=== PATIENT | male | born 1945 | race Caucasian/White ===

== ENCOUNTER 2020-01-03 08:30 | Day surgery (SDC) | payer MEDICARE, MEDICAID ==
[~2020-01-03 08:30] MED LIST: PROPOFOL 200 MG/20 ML VIAL IV ONE; SODIUM CHLORIDE 0.9% 50 ML VIAL ONE
[2020-01-03] MEDS ORDERED: LACTATED RINGERS 0 ML ONE (09:51)
[2020-01-03] MEDS ORDERED: SODIUM CHLORIDE 0.9% 250ML 250 ML ONE (09:53)
--- NOTE | 2020-01-03 09:56 | RAD ---
EXAM DESCRIPTION: Chest,1 View CLINICAL HISTORY: 74 years Male, pre op COMPARISON: None. TECHNIQUE: Single view radiograph of the chest. IMPRESSION: Enlarged cardiac silhouette. Partially calcified aorta. Dual lumen left IJ central venous catheter is in place with its tip directed inferiorly terminating within the superior vena cava. Prior sternotomy. Bilateral perihilar congestion. Coarse interstitial lung markings may reflect underlying pulmonary edema versus chronic interstitial changes. No lobar consolidation otherwise present. No pleural effusion or pneumothorax. Thoracic spondylosis. Electronically signed by: Ryan Moralez MD 01/03/2020 9:54 AM CDT
[2020-01-03] MEDS ORDERED: BUPIVACAINE 0.25% W/EPI 50 ML VIAL INJ ONE (10:13)
[2020-01-03] MEDS ORDERED: LIDOCAINE 1% 50 ML VIAL INJ ONE ×3 (10:19→10:32)
[2020-01-03] MEDS ORDERED: MIDAZOLAM INJ 2 MG/2 ML VIAL ONE (10:30)
[2020-01-03] MEDS ORDERED: fentaNYL CITRATE INJ 50 MCG/ML 2 ML AMP ONE (10:30)
--- NOTE | 2020-01-03 11:32 | OP ---
DATE OF PROCEDURE: 01/03/20 PREOPERATIVE DIAGNOSIS: 1. Nonfunctioning dialysis tunneled catheter. POSTOPERATIVE DIAGNOSIS: 1. Nonfunctioning dialysis tunneled catheter. PROCEDURE: 1. Removal of nonfunctioning tunneled dialysis catheter from the left IJ. SURGEON: Dominik Mayes MD. BANK COMPLIANCE OFFICER: None. ANESTHESIA: Local infiltration of 1% lidocaine and IV sedation by Anesthesia. INDICATION: The patient is a 74-year-old male on dialysis who has a percutaneous tunneled dialysis catheter that is no longer being used. He has dementia and for that reason, he is brought to the [facility] for removal of this catheter under the recommendation by his warp trucker, Dr. Cole. FINDINGS: The catheter was identified without difficulty. PROCEDURE: After the patient was padding in the usual sterile manner, a surgical time-out was taken. The cuff of the catheter was identified by palpation and local infiltration of anesthesia was obtained over the cuff and somewhat more proximally. An incision was made over the catheter and dissection down to the catheter was performed using blunt dissection. The catheter was dissected free proximal to the cuff using blunt dissection and some sharp dissection with scissors. When this was done, eventually the catheter was dissected proximally and then blunt dissection and then the catheter was removed without difficulty. Pressure was held over the left IJ. The cuff was then dissected free with sharp dissection and the catheter was removed. Hemostasis was obtained with pressure. The incision was then closed with 4 vertical mattress sutures of 4-0 Nylon. Sterile pressure dressing was applied. The patient tolerated the procedure well. Estimated blood loss was less than 25 mL. All sponge, needle and instrument counts were correct. #[id number] [facility]
[2020-01-03 15:44] VITALS: BP 126/65; TEMP 97.5; O2SAT 98
== END 2020-01-03 12:10 ==
LOC: AMB 08:30
PROVIDERS: ATTEND Surgery
DX: Z49.01 Encounter for fitting and adjustment of extracorporeal dialysis catheter (principal); F03.90 Unspecified dementia, unspecified severity, without behavioral disturbance, psychotic disturbance, mood disturbance, and anxiety
CPT/HCPCS: 36415; 36589; 71045; 80048; 85025; 93005; A4216; J2250; J3010; J3490; J7050

== ENCOUNTER 2020-01-04 13:16 | Emergency (ER) | payer MEDICARE, MEDICAID ==
[2020-01-04 13:38] VITALS: TEMP 97.9
--- NOTE | 2020-01-04 13:40 | RAD ---
EXAM DESCRIPTION: Chest,1 View CLINICAL HISTORY: fall COMPARISON: January 03, 2020 IMPRESSION: Single AP portable upright view of the chest shows enlargement of the cardiac silhouette without pulmonary vascular congestion. Postsurgical changes from CABG are seen. Interval removal of left IJ tunneled hemodialysis catheter. Lungs are normally aerated with chronic appearing interstitial changes similar to previous. No acute infiltrate or consolidation. No pleural effusion or pneumothorax. Osseous structures are diffusely osteopenic. Electronically signed by: Collin Neal MD 01/04/2020 1:39 PM CDT
[2020-01-04] MEDS ORDERED: TETANUS,DIPHTHERIA,PERTUSSIS 1 EA SYG IM ONE (13:41)
--- NOTE | 2020-01-04 13:49 | ED.PDOC ---
History of Present Illness - General Chief Complaint: Trauma Stated Complaint: FALL Time Seen by Provider: 01/04/20 13:25 Source: RN notes reviewed, Vital Signs reviewed, EMS notes reviewed Exam Limitations: no limitations - History of Present Illness Initial Comments: 74 y/o dialysis patient fell while transferring. He was found prone on the floor. no LOC. Upon arrival to ER he indicates that he has pain to his L side. He also has multiple skin tears. hands, head and arm. Denies any other sx at this time. Allergies/Adverse Reactions: Allergies Cinacalcet Allergy (Verified 01/04/20 13:47) Lisinopril Allergy (Verified 01/04/20 13:47) Penicillins Allergy (Verified 01/03/20 08:59) Ramipril Allergy (Verified 01/04/20 13:47) Sulfa Antibiotics Allergy (Verified 01/03/20 08:59) Review of Systems - Review of Systems Constitutional: States: no symptoms reported EENTM: States: see HPI Respiratory: States: no symptoms reported Cardiology: States: no symptoms reported Gastrointestinal/Abdominal: States: no symptoms reported Genitourinary: States: other - ESRD on dialysis Skin: States: other - skin tears to both hands and R arm Neurological: States: no symptoms reported Hematologic/Lymphatic: States: anemia Past Medical History (General) - Patient Medical History Hx Congestive Heart Failure: No Hx Diabetes: Yes - 123 Hx MRSA: No Family Medical History - Family History Mother Family History: Unknown Physical Exam - Physical Exam General Appearance: Alert, Comfortable, No apparent distress Eye Exam: left normal Ears, Nose, Throat: hearing grossly normal, normal ENT inspection, normal pharynx, other Neck: non-tender, full range of motion, supple, normal inspection Respiratory: chest non-tender, lungs clear, normal breath sounds, no respiratory distress Cardiovascular/Chest: regular rate, rhythm, no edema, no JVD, no murmur Gastrointestinal/Abdominal: normal bowel sounds, non tender, soft, no organomegaly, no pulsatile mass Back Exam: normal inspection, no vertebral tenderness Extremity: normal range of motion, no pedal edema, other Skin Exam: other - skin tear to R hand x2 and R elbow. skin tear to L middle finger Departure - Departure Clinical Impression: Contusion of abdominal wall Qualifiers: Encounter type: initial encounter Qualified Code(s): S30.1XXA - Contusion of abdominal wall, initial encounter Contusion of rib Qualifiers: Encounter type: initial encounter Laterality: left Qualified Code(s): S20.212A - Contusion of left front wall of thorax, initial encounter Disposition: Discharge to Home or Self Care Condition: Good Departure Forms: ED Discharge - Pt. Copy, Patient Portal Self Enrollment Instructions: DI for Trauma Referrals: Dejan Scott MD [Primary Care Provider] - 1-2 Weeks
[2020-01-04] MEDS ORDERED: NEOMYCIN-BACITRACIN-POLYMYXIN 0.9 GM UD TOP SCH (14:00)
[2020-01-04 15:40] VITALS: BP 161/86; O2SAT 97
== END 2020-01-04 15:10 | disposition home or self-care (01) ==
LOC: ER 13:16
DX: S30.1XXA Contusion of abdominal wall, initial encounter (principal); S20.212A Contusion of left front wall of thorax, initial encounter; S61.411A Laceration without foreign body of right hand, initial encounter; S61.213A Laceration without foreign body of left middle finger without damage to nail, initial encounter; S51.011A Laceration without foreign body of right elbow, initial encounter; W18.30XA Fall on same level, unspecified, initial encounter; Y92.9 Unspecified place or not applicable

== ENCOUNTER 2020-02-12 12:51 | Emergency (ER) | payer MEDICARE, MEDICAID ==
[2020-02-12 13:16] VITALS: TEMP 97
--- NOTE | 2020-02-12 13:54 | CT ---
TECHNIQUE: Spiral CT images were obtained of the cervical spine. Sagittal and coronal reconstructions were also performed. This exam was performed according to our departmental dose-optimization program, which includes automated exposure control, adjustment of the mA and/or kV according to patient size and/or use of iterative reconstruction technique. CLINICAL HISTORY PROVIDED: FELL; ACUTE AMS; PAIN IN HEAD, C-SPINE, R SHOULDER COMPARISON: None available. FINDINGS: Alignment: No acute subluxation. Fracture: No acute fracture. Degenerative Changes: Multilevel degenerative changes are present. Multilevel disc space narrowing with endplate degenerative change, marginal osteophytes and facet/uncinate process hypertrophy most pronounced at C5/C6. Prevertebral / Paraspinal Soft Tissues: Diffuse vascular calcifications. Pleural calcifications noted in the tentorium. Debris in the upper esophagus. IMPRESSION: Multilevel cervical spondylosis. No acute fracture or subluxation. Electronically signed by: Norman Ta MD 02/12/2020 1:52 PM CDT
--- NOTE | 2020-02-12 13:56 | CT ---
EXAM DESCRIPTION: CT Head without contrast CLINICAL HISTORY: FELL; ACUTE AMS; PAIN IN HEAD, C-SPINE, R SHOULDER COMPARISON: None available TECHNIQUE: Noncontrast head CT was performed with routine protocol. FINDINGS: Soft tissue hematoma of the left frontal region is consistent with history of acute trauma. Bone window images are negative for underlying calvarial fracture. No fracture of the frontal sinus. Normal gonzalez-white matter differentiation. Ventricles and sulci are prominent consistent with age-related cerebral volume loss. Low density areas in the white matter consistent with chronic microvascular ischemic disease No high density hemorrhage, focal edema or shift of the midline. No sulcal effacement. Dense calcification of the tentorium cerebelli. Normal orbital contents. Basilar cisterns appear clear. Intact calvarium with no fracture or lytic lesion. Normal aeration of tympanic cavities and mastoid air cells. Very dense opacification of the right maxillary sinus consistent with chronic inspissated mucus or fungal infection. Skull base appears intact. Symmetrical internal auditory canals. IMPRESSION: No acute intracranial pathologic process. Chronic right maxillary sinusitis. This exam was performed according to our departmental dose-optimization program, which includes automated exposure control, adjustment of the mA and/or kV according to patient size and/or use of iterative reconstruction technique. Total DLP equals 1161.32 mGycm. Electronically signed by: Jace De Oliveira MD 02/12/2020 1:54 PM CDT
--- NOTE | 2020-02-12 13:58 | RAD ---
EXAM DESCRIPTION: Chest,1 View CLINICAL HISTORY: 74 years Male, ACUTE ALTERED MENTAL STATUS COMPARISON: 01/04/2020. TECHNIQUE: AP radiograph of the chest was obtained. FINDINGS: Trachea is midline.The cardiomediastinal silhouette is mildly enlarged in size. The pulmonary vasculature is within normal limits.The lungs are clear with no acute consolidation.No evidence of pleural effusions. IMPRESSION: No acute cardiopulmonary process. Electronically signed by: Domi Angel MD 02/12/2020 1:57 PM CDT
--- NOTE | 2020-02-12 13:59 | RAD ---
2 radiographs right shoulder Indication: FELL; ACUTE AMS; PAIN IN HEAD, C-SPINE, R SHOULDER Comparison: None Impression: A.C. and glenohumeral joint alignment normal without acute fracture or dislocation. Moderate AC joint osteoarthritis. Osteopenia. If this is a new finding, DEXA scan recommended as well as evaluation for possible osteoporosis treatment. Electronically signed by: Hugo Cancino MD 02/12/2020 1:57 PM CDT
[2020-02-12 16:25] VITALS: O2SAT 100
--- NOTE | 2020-02-12 17:16 | ED.PDOC ---
History of Present Illness - General Chief Complaint: Neuro Symptoms/Deficits Stated Complaint: Altered Mental Status Time Seen by Provider: 02/12/20 13:03 Source: patient, snf records Exam Limitations: clinical condition - History of Present Illness Initial Comments: [facility] PT SINCE 2 MOS AGO (H/O DEMENTIA). FELL THIS AM. ON CHRONIC DIALYSIS Timing/Duration: 4-6 hours Severity: moderate Improving Factors: nothing Worsening Factors: nothing Associated Symptoms: denies symptoms - BUT HAS DEMENTIA SO NOT ANSWERING QUESTIONS CLEARLY. Allergies/Adverse Reactions: Allergies Cinacalcet Allergy (Verified 02/12/20 13:18) Lisinopril Allergy (Verified 02/12/20 13:18) Penicillins Allergy (Verified 02/12/20 13:18) Ramipril Allergy (Verified 02/12/20 13:18) Sulfa Antibiotics Allergy (Verified 02/12/20 13:18) Review of Systems - Review of Systems Unable to Obtain Due To: dementia Past Medical History (General) - Patient Medical History Hx Congestive Heart Failure: Yes Hx Hypertension: Yes Hx Diabetes: Yes Hx Renal Disease: Yes Hx MRSA: No - Vaccination History Hx Influenza Vaccination: Yes Hx Pneumococcal Vaccination: Yes - Social History Hx Alcohol Use: No - Activities of Daily Living Senior Care/Assisted Living (if applicable):: [facility] Family Medical History - Family History Mother Family History: Unknown Physical Exam - Physical Exam General Appearance: Obese, Other - UNCOMFORTABLE Eye Exam: bilateral normal Ears, Nose, Throat: hearing grossly normal, normal ENT inspection, normal pharynx Neck: non-tender, full range of motion, normal inspection Respiratory: chest non-tender, lungs clear, normal breath sounds, no respiratory distress, no accessory muscle use Cardiovascular/Chest: normal peripheral pulses, regular rate, rhythm, no murmur Peripheral Pulses: radial,right: 2+, radial,left: 2+ Gastrointestinal/Abdominal: normal bowel sounds, non tender, soft Back Exam: normal inspection, no CVA tenderness, no vertebral tenderness Extremity: non-tender, normal inspection, pedal edema Neurologic: fruit preserver II-XII nml as tested, no motor/sensory deficits, oriented x 3 - DOESN'T COMMAND. Skin Exam: normal color, warm/dry Lymphatic: no adenopathy Progress - Progress Progress: 02/12/20 17:14 PER NURSING AND SNF, PT GROANS A LOT AT BASELINE WITH HIS DEMENTIA, SO THAT IS NOT A NEW FINDING IN THE ER. EKG SINUS WITH LAD, LEFT VENTRICULAR HYPERTROPHY, WIDENED QRS, PROLONGED QT, IN VERTED ST WAVES BUT NO ST ELEVATION. THUS ORDERING CARDIAC ENZYMES FOR COMPLETENESS. 02/12/20 17:33 W/U NEG FOR ACUTE ETX OF FALL: CBC HGB 8.6 BUT HAS DX OF CHRONIC ANEMIA ON [facility] REPORT. CMP ELEV BUN AND CR BUT IS ON DIALYSIS FOR CRF. CXR NEG. EKG PER ABOVE THUS CARD ENZ, PENDING. UA PENDING - PT ON DIALYSIS AND IS INCONTINENT (WEARS DIAPER) THUS CANNOT COLLECT, NEED STRAIGHT CATH. ATTEMPTED BUT UNABLE TO STRAIGHT CATH, PT IS FIGHTING WITH AND VERBALLY CURSING AND YELLING AT STAFF DESPITE 2 NURSES ATTEMPT. NO LEUKOCYTOSIS AND AFEBRILE, THUS LOW CONCERN FOR UTI. W/U FOR RESULTANT INJURIES NEG: CT BRAIN, CT C-SPINE, AND R SHOULDER XRAY NEG CUTELY (CHRONIC OSTEOARTHRITIS). THESE WERE THE ONLY AREAS WHERE PT TTP (GROANED UPON EXAM). 02/12/20 18:08 TROP 0.07. SLIGHTLY ELEVATED, COULD BE D/T CHRONIC DIALYSIS. WILL REPEAT EKG NOW AND CARD ENZ IN 1 H TO ENSURE NOT TRENDING UP. IF SO, ADMISSION OR TRANSFER IS WARRANTED. 02/12/20 19:44 2ND TROPONIN UNCHANGED (0.07), THUS IS NOT AN ACUTE OH, RATHER LIKELY REMAINS CHRONICALLY ELEVATED FROM CRF REQUIRING DIALYSIS. SAFE FOR DC BACK TO SNF. Departure - Departure Clinical Impression: Chronic kidney disease on chronic dialysis, Chronic anemia, Elevated troponin level not due myocardial infarction Fall Qualifiers: Encounter type: initial encounter Qualified Code(s): W19.XXXA - Unspecified fall, initial encounter Dementia Qualifiers: Dementia type: unspecified type Dementia behavioral disturbance: with behavioral disturbance Qualified Code(s): F03.91 - Unspecified dementia with behavioral disturbance Contusion of forehead Qualifiers: Encounter type: initial encounter Qualified Code(s): S00.83XA - Contusion of other part of head, initial encounter Disposition: Discharge to SNF Condition: Fair Departure Forms: ED Discharge - Pt. Copy, Patient Portal Self Enrollment Instructions: Preventing Falls Diet: resume usual diet Activity: increase activity as tolerated Referrals: Dejan Scott MD [Primary Care Provider] - 1-2 Weeks Additional Instructions: Please see cardiology for further evaluation regarding your EKG, which did not show a heart attack, but had some irregular finding.
[2020-02-12 21:04] VITALS: BP 125/65
== END 2020-02-12 20:55 ==
LOC: ER 12:51
DX: I13.0 Hypertensive heart and chronic kidney disease with heart failure and stage 1 through stage 4 chronic kidney disease, or unspecified chronic kidney disease (principal); E11.22 Type 2 diabetes mellitus with diabetic chronic kidney disease; N18.9 Chronic kidney disease, unspecified; I50.9 Heart failure, unspecified; S00.83XA Contusion of other part of head, initial encounter; E66.9 Obesity, unspecified; R79.89 Other specified abnormal findings of blood chemistry; F03.91 Unspecified dementia, unspecified severity, with behavioral disturbance; D63.1 Anemia in chronic kidney disease; W19.XXXA Unspecified fall, initial encounter; Y92.9 Unspecified place or not applicable